=== PATIENT | female | born 1990 | race Caucasian/White ===

== ENCOUNTER 2019-02-09 14:12 | Emergency (ER) | payer MEDICAID ==
[~2019-02-09] VITALS: Ht 154.9 cm; Wt 72.6 kg
[2019-02-09 14:16] VITALS: Ht 154.9 cm; Wt 72.6 kg
[2019-02-09 16:08] VITALS: BP 117/69
== END 2019-02-09 16:08 | disposition home or self-care (01) ==
LOC: ED 14:12
DX: S93.401A Sprain of unspecified ligament of right ankle, initial encounter (principal); N39.0 Urinary tract infection, site not specified; I10 Essential (primary) hypertension; Z86.73 Personal history of transient ischemic attack (TIA), and cerebral infarction without residual deficits; X50.1XXA Overexertion from prolonged static or awkward postures, initial encounter; Y93.89 Activity, other specified; Y92.89 Other specified places as the place of occurrence of the external cause; Y99.8 Other external cause status
CPT/HCPCS: J1885